=== PATIENT | female | born 1960 | race Caucasian/White ===

== ENCOUNTER → 2020-09-02 | Outpatient (CLI) | payer BC ==
[~2020-09-02] MED LIST: MULTI VITAMINS1 TAB PO; NORCO 325 MG-51 TAB PO; SYNTHROID0.075 MG/T PO; VITAMIN D32000 IU PO
== END ==
LOC: COL.RAD 14:15
DX: R22.1 Localized swelling, mass and lump, neck (principal)

== ENCOUNTER → 2021-09-16 | Outpatient (CLI) | payer OTHER | LOC: MC.RAD 09:59 | DX: Z12.31 Encounter for screening mammogram for malignant neoplasm of breast (principal) ==

== ENCOUNTER 2023-01-18 09:08 | Outpatient (CLI) | payer OTHER ==
[~2023-01-18] VITALS: Ht 162.6 cm; Wt 74.7 kg
[2023-01-18] VITALS (13 sets, daily range): BP systolic 132–187; BP diastolic 64–95; PULSE 64–93; TEMP 97.9
[~2023-01-18 09:08] MED LIST changes: +COZAAR100 MG PO; +LEVOXYL0.088 MG PO; +MAG-OX 400400 MG/TAB PO; +ONE-A-DAY WOM200 MCG PO; +VITAMIN D 400400 IU PO
--- NOTE | 2023-01-18 10:15 | NUR ---
DR COLLIER IN ROOM, VERSED 0.5MG AND FENTANYL 25MCG IV GIVEN ORDERED, AND PROCEDURE STARTED
--- NOTE | 2023-01-18 10:22 | NUR ---
YOSEPH OBTAINED AND PUT IN FORMULIN, BANDAID OVER SITE
--- NOTE | 2023-01-18 13:30 | NUR ---
DC instructions reviewed with pt and , both express understanding. Pt has been free of complaints during recovery period. She ambulates to restroom after clearance by Dr Blackwell. Gait steady and no issues with activity. She is sipping soda at time of discharge and tolerating it well. IV DC'd, site wrapped with coban. She is assisted out by wheelchair to 's car with belongings.
== END 2023-01-18 13:30 | disposition home or self-care (01) ==
LOC: COL.RAD 09:08
DX: R91.1 Solitary pulmonary nodule (principal)
CPT/HCPCS: J2250; J3010

== ENCOUNTER → 2023-02-24 | Outpatient (CLI) | payer OTHER ==
[2023-02-24 12:48] LABS: BAND 4 % (0-10); BASOPHIL 2 % (0-2); LYMPHOCYTE 30 % (20.0-51.0); NEUTROPHILS 59 % (42.0-75.2); PLATELET ESTIMATE NORMAL (NORMAL)
== END ==
LOC: ZCOL.LAB 12:04
PROVIDERS: Family Medicine
DX: C34.31 Malignant neoplasm of lower lobe, right bronchus or lung (principal)

== ENCOUNTER → 2023-03-01 | Outpatient (CLI) | payer OTHER ==
[~2023-03-01] MED LIST changes: +Albuterol 0.083% Neb Soln 2.5 MG/3 ML UD IH ONE
== END ==
LOC: COL.CARD 07:37
DX: C34.31 Malignant neoplasm of lower lobe, right bronchus or lung (principal)

== ENCOUNTER → 2023-03-17 | Outpatient (CLI) | payer OTHER ==
[~2023-03-17] MED LIST changes: -Albuterol 0.083% Neb Soln 2.5 MG/3 ML UD IH ONE; +Gadoterate 15 ML VIAL IV ONE
== END ==
LOC: COL.RAD 12:55
DX: C34.31 Malignant neoplasm of lower lobe, right bronchus or lung (principal)
CPT/HCPCS: A9575